=== PATIENT | female | born 1995 | race African-American/Black ===

== ENCOUNTER 2017-09-17 14:44 | Emergency (ER) | payer MEDICAID, SELFPAY ==
[2017-09-17 15:38] LABS: #Basophils 0.1 thou/uL (0.0-0.2); #Eosinphils 0.1 thou/uL (0.0-0.7); #Lymphocytes 1.9 thou/uL (1.20-3.40); #Monocytes 0.4 thou/uL (0.11-0.59); #Neutrophils 4.4 thou/uL (1.40-6.50); %Basophils 1.2 % (0.0-1.0); %Eosinophils 0.8 % (0.0-10.0); %Lymphocytes 27.8 % (21.0-51.0); %Monocytes 5.9 % (0.0-10.0); Hematocrit 40.2 % (36.0-47.0); Mean Platelet Volume 6.4 fL (7.4-10.4); Red Blood Cell (RBC) Count 4.56 mill/uL (4.20-5.40); White Blood Cell (WBC) Count 6.8 thou/uL (4.8-10.8)
[2017-09-17 15:58] LABS: ALT (SGPT) 20 U/L (8-55); AST (SGOT) 23 U/L (5-34); Alkaline Phosphatase 124 U/L (40-150); Anion Gap 9 mmol/L (10-20); BUN (Urea Nitrogen) 7 mg/dL (7.0-18.7); Bilirubin, Total 0.3 mg/dL (0.2-1.2); Calc. Creatinine Clearance 0 mL/min (70-130); Calcium 9.6 mg/dL (7.8-10.44); Carbon Dioxide 30 mmol/L (22-29); Chloride 101 mmol/L (98-107); Estimated GFR-MDRD Greater than 90; Lipase 69 U/L (8-78); Protein, Total 6.8 g/dL (6.0-8.3)
[2017-09-17 16:32] LABS: Bilirubin Negative (Negative); Blood, Urine Negative (Negative); Glucose, Urine (Dipstick) Negative (Negative); Ketone, Urine Negative (Negative); Nitrite Negative (Negative); Protein, Urine (Dipstick) Negative (Neg-Trace)
--- NOTE | 2017-10-16 16:12 | EKG ---
Test Reason : Blood Pressure : / mmHG Vent. Rate : 095 BPM Atrial Rate : 095 BPM P-R Int : 150 ms QRS Dur : 078 ms QT Int : 332 ms P-R-T Axes : 066 053 043 degrees QTc Int : 417 ms Normal sinus rhythm Normal ECG Confirmed by HELENA CACERES, GILLIAN Branch ([id number]), legal editor SHANDA ROMERO ([id number]) on 10/16/2017 4:12:10 PM Referred By: Confirmed By:GILLIAN MALIK MD
== END 2017-09-17 17:04 | disposition home or self-care (01) ==
LOC: ERS 14:44
DX: R55 Syncope and collapse (principal)
CPT/HCPCS: 36415; 80053; 81003; 83690; 84703; 85025; 93005; 96360

== ENCOUNTER 2017-10-06 13:42 | Emergency (ER) | payer SELFPAY ==
[2017-10-06] MEDS ORDERED: Ondansetron ODT 4 MG TAB ONE (14:16)
[2017-10-06 14:38] LABS: #Basophils 0.1 thou/uL (0.0-0.2); #Eosinphils 0.1 thou/uL (0.0-0.7); #Lymphocytes 2.1 thou/uL (1.20-3.40); #Monocytes 0.6 thou/uL (0.11-0.59); #Neutrophils 3.4 thou/uL (1.40-6.50); %Basophils 1.1 % (0.0-1.0); %Eosinophils 1.3 % (0.0-10.0); %Monocytes 9.1 % (0.0-10.0); Hematocrit 41.6 % (36.0-47.0); Mean Platelet Volume 6.5 fL (7.4-10.4); Red Blood Cell (RBC) Count 4.71 mill/uL (4.20-5.40); White Blood Cell (WBC) Count 6.3 thou/uL (4.8-10.8)
[2017-10-06 14:57] LABS: ALT (SGPT) 19 U/L (8-55); AST (SGOT) 18 U/L (5-34); Alkaline Phosphatase 132 U/L (40-150); Anion Gap 9 mmol/L (10-20); BUN (Urea Nitrogen) 9 mg/dL (7.0-18.7); Bilirubin, Total 0.3 mg/dL (0.2-1.2); Calc. Creatinine Clearance 0 mL/min (70-130); Calcium 9.5 mg/dL (7.8-10.44); Carbon Dioxide 30 mmol/L (22-29); Chloride 103 mmol/L (98-107); Estimated GFR-MDRD Greater than 90; Globulin 3.3 g/dL (2.4-3.5); Lipase 30 U/L (8-78); Protein, Total 7.2 g/dL (6.0-8.3)
[2017-10-06 15:06] LABS: Bilirubin Negative (Negative); Blood, Urine Large (Negative); Glucose, Urine (Dipstick) Negative (Negative); Ketone, Urine Negative (Negative); Nitrite Negative (Negative); Protein, Urine (Dipstick) 30 mg/dL (Neg-Trace)
[2017-10-06 15:09] LABS: Bacteria/HPF Rare-Few HPF (None Seen); Hyaline Casts/LPF 0-3 HYALINE CAST LPF (0-3 Hyaline); RBC/HPF GREATER THAN 50-TNTC HPF (0-3)
[2017-10-06] MEDS ORDERED: cefTRIAXone\\ROCEPHIN 250 MG VIAL ONE (15:42)
[2017-10-06] MEDS ORDERED: Azithromycin 250 MG TAB ONE (15:42)
[2017-10-06] MEDS ORDERED: Lidocaine 1% PF 5 ML VIAL ONE (15:44)
== END 2017-10-06 16:20 | disposition home or self-care (01) ==
LOC: ERS 13:42
DX: N39.0 Urinary tract infection, site not specified (principal); Z20.2 Contact with and (suspected) exposure to infections with a predominantly sexual mode of transmission
CPT/HCPCS: 36415; 80053; 81003; 81015; 81025; 83690; 84703; 85025; 87480; 87491; 87510; 87591; 87660; 96372; J0696; J2001; Q0162

== ENCOUNTER 2019-11-19 17:38 | Emergency (ER) | payer MEDICAID ==
[2019-11-19] MEDS ORDERED: Ondansetron PF 4 MG/2 ML Vial ONE (18:18)
[2019-11-19 20:14] LABS: Bacteria/HPF 3+ HPF (None Seen); Bilirubin Negative (Negative); Blood, Urine Negative (Negative); Clarity Turbid (Clear); Glucose, Urine (Dipstick) Normal (Negative); Leukocyte 75 Leu/uL (Negative); Mucous/LPF Rare LPF (<2+); Nitrite Negative (Negative); Protein, Urine (Dipstick) 100 mg/dL (Neg-Trace); RBC/HPF 0-3 HPF (0-3); Squamous Epithelial Greater than 50 HPF (0-3); Urobilinogen Greater than 12 mg/dL (Less than 2); WBC/HPF 0-3 HPF (0-3)
[2019-11-19 20:16] LABS: Pregnancy Test - Urine (BHCG) POSITIVE (Negative); Pregu Control Background? CLEAR/WHITE (CLR/WHITE); Pregu Control Bar Appear? YES (CONTROL BAR); Specific Gravity 1.034 (1.002-1.036)
[2019-11-19] MEDS ORDERED: Metoclopramide HCl 10 MG/2 ML VIAL ONE (21:40)
== END 2019-11-19 22:04 | disposition home or self-care (01) ==
LOC: ERS 17:38
DX: O21.0 Mild hyperemesis gravidarum (principal); Z3A.08 8 weeks gestation of pregnancy
CPT/HCPCS: 81003; 81015; 81025; 96361; 96374; 96375; J2405; J2765

== ENCOUNTER 2020-02-15 13:44 | Outpatient (CLI) | payer OTHER ==
--- NOTE | 2020-02-15 14:57 | ULT ---
COMPLETE OBSTETRIC ULTRASOUND: 02/15/20 INDICATION: Evaluate anatomy. COMPARISON: None. FINDINGS: There is a single live intrauterine gestation in vertex presentation. Placenta is anterior in locatio n without evidence of previa. Cardiac activity is noted at 144 beats per minute. The head, heart, stomach, kidneys, spleen, lips and nose, cord insertion, bladder, extremities and three vessel cord appear within normal limits. The biparietal diameter measures 4.93 cm giving an estimated gestational age of 21 weeks and 0 days. Head circumference measures 18.53 cm giving an estimated gestational age of 21 weeks and 0 days. Abdominal circumference measures 16.34 cm giving an estimated gestational age of 21 weeks and 3 days. Femur length measures 3.91 cm giving an estimated gestational age of 20 weeks and 4 days. Estimated weight is 451 grams +/- 66 grams (64th percentile). Average gestational age by ultrasound is 21 weeks and 4 days. Clinical age is 21 weeks and 3 days. Es timated due date by ultrasound is 06/23/20. Estimated due date by clinical date is 06/24/20. IMPRESSION: Single live intrauterine gestational with size and dates as above. POS:
== END 2020-02-15 13:45 | disposition home or self-care (01) ==
LOC: BICULT 13:44
PROVIDERS: ATTEND Family Medicine
DX: O09.92 Supervision of high risk pregnancy, unspecified, second trimester (principal); Z3A.21 21 weeks gestation of pregnancy
CPT/HCPCS: 76805

== ENCOUNTER 2020-03-31 03:01 | Emergency (ER) | payer OTHER ==
[2020-03-31] MEDS ORDERED: Lidocaine 2% MPF 10 ML AMP (For Epidural Use) ONE (04:51)
[2020-03-31] MEDS ORDERED: Lidocaine 1% (PF) 30 ML VIAL ONE (04:51)
[2020-03-31] MEDS ORDERED: Bacitracin 1 PK ONE (06:22)
== END 2020-03-31 06:35 | disposition home or self-care (01) ==
LOC: ERS 03:01
DX: L03.011 Cellulitis of right finger (principal)
CPT/HCPCS: 10060; J2001

== ENCOUNTER 2020-06-03 16:06 | Day surgery (SDC) | payer OTHER ==
[2020-06-03 16:59] VITALS: BP 133/88; TEMP 99.1; BMI 42.1
[2020-06-03] MEDS ORDERED: hydrALAZINE 20 MG/ML VIAL SLOW IVP PRN (17:27)
[2020-06-03 18:12] LABS: #Lymphocytes 1.3 thou/uL (1.20-3.40); #Monocytes 0.5 thou/uL (0.11-0.59); #Neutrophils 4.7 thou/uL (1.40-6.50); %Basophils 0.3 % (0.0-1.0); %Eosinophils 0.3 % (0.0-10.0); %Lymphocytes 20.1 % (21.0-51.0); %Monocytes 8.2 % (0.0-10.0); %Neutrophils 71.1 % (42.0-75.0); Hemoglobin 11.1 g/dL (12.0-16.0); Mean Corpuscular HGB CONC 33.3 g/dL (32.0-36.0); Mean Corpuscular Hemoglobin 27.6 pg (27.0-31.0); Mean Corpuscular Volume 82.9 fL (78.0-98.0); Mean Platelet Volume 7.7 fL (7.4-10.4); Platelet Count 243 thou/uL (130-400); RBC Distribution Width 14.5 % (11.5-14.5); Red Blood Cell (RBC) Count 4.02 mill/uL (4.20-5.40); White Blood Cell (WBC) Count 6.5 thou/uL (4.8-10.8)
[2020-06-03 18:18] LABS: Hemoglobin A1c 6.3 % (4.0-6.0)
[2020-06-03 18:34] LABS: ALT (SGPT) 15 U/L (8-55); AST (SGOT) 19 U/L (5-34); Albumin 3.1 g/dL (3.5-5.0); Alkaline Phosphatase 201 U/L (40-110); Anion Gap 10 mmol/L (10-20); BUN (Urea Nitrogen) 5 mg/dL (7.0-18.7); Bilirubin, Total 0.3 mg/dL (0.2-1.2); Calc. Creatinine Clearance 233 mL/min (70-130); Calcium 9.2 mg/dL (7.8-10.44); Carbon Dioxide 23 mmol/L (22-29); Chloride 106 mmol/L (98-107); Estimated GFR-MDRD Greater than 90; Globulin 3.4 g/dL (2.4-3.5); Glucose 73 mg/dL (70-105); Protein, Total 6.5 g/dL (6.0-8.3); Sodium 135 mmol/L (136-145)
--- NOTE | 2020-06-03 18:50 | ULT ---
Exam: Nonstress biophysical profile HISTORY: 37 week intrauterine , gestational maternal diabetes TECHNIQUE: Nonstress biophysical profile is performed FINDINGS: position Vertex Anterior placenta. The placental tip appears to be remote from the cervix. Cervix cannot be assessed due to shadowing heart tones: 149 bpm biometry: BPD 8.81 cm, 35 weeks 4 days Head circumference 32.60 cm, 37 weeks 0 days Abdominal circumference 33.98 cm, 37 weeks 6 days Femur length 7.23 cm, 37 weeks 0 days Average age by sonography is 36 weeks 6 days. Estimated delivery date 06/25/2020 Estimated weight 3172 g +/- 469 g Amniotic fluid 13.5 IMPRESSION: Single intrauterine gestation with heart tones. Average age by sonography is 36 weeks 6 days. Transcribed Date/Time: 06/03/2020 6:59 PM
--- NOTE | 2020-06-03 18:51 | ULT ---
NONSTRESS BIOPHYSICAL PROFILE: FINDINGS: tone: 2 breathin movement: 2 Amniotic fluid: 2 Amniotic fluid index is 13.5 cm Total score is 8 out of 8 IMPRESSION: Nonstress biophysical profile with a total score 8 out of 8. Transcribed Date/Time: 06/03/2020 7:01 PM
--- NOTE | 2020-06-04 12:33 | SS ---
DATE OF ADMISSION: 06/03/2020 DATE OF DISCHARGE: 06/03/2020 REGULAR PHYSICIAN: Aleksander Multani MD. CHIEF COMPLAINT: Sent from office by Dr. Multani. HISTORY OF PRESENT ILLNESS: Ms. Mandujano is a 24-year-old black G1, P0 with an estimated date of confinement of 06/24/2020, who presents from Dr. Multani's office for evaluation. I spoke with him and his concern is that she had been noncompliant with her diet and he had concerns regarding her gestational diabetes. The patient does report to me that her fastings run 78-90 and that her post prandials run 112-120. She denies ruptured membranes, vaginal bleeding or decreased movement. PAST MEDICAL HISTORY: None. PAST SURGICAL HISTORY: None. CURRENT MEDICATIONS: vitamins. ALLERGIES: PEANUTS, IODINE, SHELLFISH. SOCIAL HISTORY: Denies tobacco, alcohol, or drug use. FAMILY HISTORY: Unremarkable. REVIEW OF SYSTEMS: Denies nausea, vomiting, fever, chills, ruptured membranes, or vaginal bleeding. PHYSICAL EXAMINATION: VITAL SIGNS: Blood pressure is 133/88. Remainder of her vital signs are stable. GENERAL: She is pleasant and in no distress. heart rate tracing is stable. There are no decelerations. No regular contractions are seen. LABORATORY DATA: White count 6.5, hemoglobin 11.1, hematocrit 33.3. Platelet count 243,000. Chemistry: Sodium 135, potassium 4.0, carbon dioxide 23, creatinine 0.63, glucose 73. Hemoglobin A1c 6.3, total bilirubin 0.3, AST and ALT are 19 and 15 respectively, IMAGIN. Biophysical profile gives a score of 8/8. 2. Ultrasound shows a vertex fetus, weight 3172 g with an DEVON of 13.5. ASSESSMENT: 1. Thirty-seven week intrauterine . 2. Gestational diabetes. 3. Reassuring testing here in Labor and Delivery today. PLAN: The results were discussed with Dr. Multani. She will be sent home with labor precautions and follow up per his instructions. Job ID: [id number]
== END 2020-06-03 19:10 | disposition home health service (06) ==
LOC: L&D/OP 16:06
PROVIDERS: ATTEND Family Medicine
DX: O24.410 Gestational diabetes mellitus in pregnancy, diet controlled (principal); Z3A.37 37 weeks gestation of pregnancy; Z88.8 Allergy status to other drugs, medicaments and biological substances; Z91.010 Allergy to peanuts; Z91.013 Allergy to seafood
CPT/HCPCS: 36415; 76815; 76819; 80053; 83036; 85025; 99282

== ENCOUNTER 2021-01-20 08:00 | Inpatient (IN) | payer OTHER ==
[2021-01-20] MEDS ORDERED: Ondansetron PF 4 MG/2 ML Vial ONE ×3 (08:21→18:54)
[2021-01-20 08:26] LABS: #Basophils 0.1 thou/uL (0.0-0.2); #Eosinphils 0.1 thou/uL (0.0-0.7); #Lymphocytes 1.2 thou/uL (1.20-3.40); #Monocytes 0.3 thou/uL (0.11-0.59); #Neutrophils 2.6 thou/uL (1.40-6.50); %Basophils 1.5 % (0.0-1.0); %Eosinophils 1.2 % (0.0-10.0); %Lymphocytes 28.5 % (21.0-51.0); %Monocytes 6.1 % (0.0-10.0); %Neutrophils 62.7 % (42.0-75.0); Hemoglobin 13.3 g/dL (12.0-16.0); Mean Corpuscular HGB CONC 32.8 g/dL (32.0-36.0); Mean Corpuscular Hemoglobin 28.1 pg (27.0-31.0); Mean Corpuscular Volume 85.5 fL (78.0-98.0); Platelet Count 348 thou/uL (130-400); RBC Distribution Width 13.5 % (11.5-14.5); Red Blood Cell (RBC) Count 4.74 mill/uL (4.20-5.40); White Blood Cell (WBC) Count 4.2 thou/uL (4.8-10.8)
[2021-01-20 08:34] LABS: BHCG - Serum Negative (NEGATIVE); Pregs Control Background? CLEAR/WHITE (CLR/WHITE); Pregs Control Bar Appear? YES (CONTROL BAR)
[2021-01-20 08:47] LABS: ALT (SGPT) 1152 U/L (8-55); AST (SGOT) 1096 U/L (5-34); Albumin 4.1 g/dL (3.5-5.0); Alkaline Phosphatase 329 U/L (40-110); Anion Gap 15 mmol/L (10-20); BUN (Urea Nitrogen) 8 mg/dL (7.0-18.7); Calc. Creatinine Clearance 0 mL/min (70-130); Calcium 8.9 mg/dL (7.8-10.44); Carbon Dioxide 26 mmol/L (22-29); Chloride 102 mmol/L (98-107); Globulin 3.5 g/dL (2.4-3.5); Glucose 105 mg/dL (70-105); Lipase 54 U/L (8-78); Potassium 3.6 mmol/L (3.5-5.1); Protein, Total 7.6 g/dL (6.0-8.3); Sodium 139 mmol/L (136-145)
[2021-01-20] MEDS ORDERED: Piperacillin/Tazobactam 4.5 GM VIAL ONE (11:28)
[2021-01-20] MEDS ORDERED: Morphine 4 MG/ML VIAL ONE (11:28)
[2021-01-20 13:09] LABS: SARS-CoV-2 NAA Rapid Test Not Detected (NotDetected)
[2021-01-20 13:36] LABS: HBSAg Index 0.22 S/CO (0-0.99); Hep B Surf Ag Non-Reactive S/CO (NonReactive); Hep C IgG Ab Non-Reactive (NonReactive); Hep C Index 0.06 S/CO (0-0.79)
[2021-01-20 13:37] LABS: Hep A IgM AB Non-Reactive (NonReactive); Hep A IgM S/CO 0.13 S/CO (0-0.79)
[2021-01-20 13:38] LABS: HBCM Index 0.09 S/CO (0-0.79); Hepatitis B Core IgM Abs Non-Reactive (NonReactive)
[2021-01-20] MEDS ORDERED: Iothalamate Meglumine 60% 50 ML VIAL FS ONE (16:23)
[2021-01-20] MEDS ORDERED: Lidocaine 1% w/Epinephrine 1:100K 20 ML VIAL ONE (16:23)
[2021-01-20] MEDS ORDERED: Bupivacaine 0.25% HCL 30 ML VIAL ONE (16:23)
[2021-01-20] MEDS ORDERED: Midazolam HCl 2 mg/2 ml Vial ONE (16:36)
[2021-01-20] MEDS ORDERED: Fentanyl 100 MCG/2 ML VIAL ONE ×3 (16:36→19:48)
[2021-01-20] MEDS ORDERED: PROPOFOL 200 MG/20 ML VIAL ONE (16:42)
[2021-01-20] MEDS ORDERED: Dexamethasone 20 MG/5 ML VIAL ONE (16:42)
[2021-01-20] MEDS ORDERED: Rocuronium Bromide 10 MG/ML (10ML VIAL) ONE (16:42)
[2021-01-20] MEDS ORDERED: Glycopyrrolate 0.2 MG/ML 5 ML SYRINGE ONE (16:42)
[2021-01-20] MEDS ORDERED: Ketorolac Tromethamine 30 MG/ML VIAL ONE (16:42)
[2021-01-20] MEDS ORDERED: Lidocaine 1% PF 5 ML VIAL ONE (16:42)
[2021-01-20] MEDS ORDERED: Ioversol 68 % 50 ML VIAL ONE (16:57)
[2021-01-20] MEDS ORDERED: Dextrose 50% Abboject 50 ML SYRINGE SLOW IVP PRN (18:47)
[2021-01-20] MEDS ORDERED: Mag-Al 1200 mg/1200 mg/30 ML UDCUP PO PRN (18:47)
[2021-01-20] MEDS ORDERED: Ondansetron PF 4 MG/2 ML Vial IVP PRN (18:47)
[2021-01-20] MEDS ORDERED: Dextrose 5% in Water 1,000 ML IV PRN (18:47)
[2021-01-20] MEDS ORDERED: hydrALAZINE 20 MG/ML VIAL SLOW IVP PRN (18:47)
[2021-01-20] MEDS ORDERED: Calcium Carbonate 500 MG ChewTAB PO PRN (18:47)
[2021-01-20] MEDS ORDERED: Morphine 4 MG/ML VIAL SLOW IVP PRN (18:47)
[2021-01-20] MEDS ORDERED: Promethazine HCl 25 MG/ML VIAL IM PRN (18:47)
[2021-01-20] MEDS ORDERED: traMADol HCl 50 MG TAB PO PRN (18:53)
[2021-01-20] MEDS ORDERED: Promethazine HCl 25 MG/ML VIAL ONE (19:01)
[2021-01-20] MEDS: Enoxaparin Sodium 40 MG/0.4 ML SYRINGE SC SCH (22:24)
[2021-01-20] MEDS: Famotidine/PF 20 mg/2ml Vial SLOW IVP SCH (22:24)
[2021-01-20] MEDS: Ketorolac Tromethamine 30 MG/ML VIAL IVP SCH (22:24)
[2021-01-20] MEDS: traMADol HCl 50 MG TAB PO PRN (22:26)
[2021-01-20] MEDS: Famotidine 20 MG TAB PO SCH (22:27)
[2021-01-20] MEDS: Lactated Ringer's 1,000 ML IV SCH (22:27)
[2021-01-20 23:19] VITALS: BMI 33.6
[2021-01-20] MEDS: Acetaminophen 500 MG TAB PO SCH (23:45)
[2021-01-20] MEDS: Piperacillin/Tazobactam 3.375 GM in Sodium Chloride 0.9% 100 ML IVPB SCH (23:45)
[2021-01-20] MEDS ORDERED: Ketorolac Tromethamine 30 MG/ML VIAL IVP SCH (23:59)
[2021-01-21] MEDS: Lactated Ringer's 1,000 ML IV SCH ×3 (03:27→20:32)
[2021-01-21] MEDS: Acetaminophen 500 MG TAB PO SCH ×3 (05:26→18:37)
[2021-01-21] MEDS: Ketorolac Tromethamine 30 MG/ML VIAL IVP SCH ×3 (05:26→21:16)
[2021-01-21] MEDS: traMADol HCl 50 MG TAB PO PRN (05:27)
[2021-01-21 06:04] LABS: #Lymphocytes 0.7 thou/uL (1.20-3.40); #Monocytes 0.2 thou/uL (0.11-0.59); #Neutrophils 5.7 thou/uL (1.40-6.50); %Eosinophils 0.1 % (0.0-10.0); %Lymphocytes 10.9 % (21.0-51.0); %Monocytes 3.2 % (0.0-10.0); %Neutrophils 85.8 % (42.0-75.0); Hemoglobin 13.1 g/dL (12.0-16.0); Mean Corpuscular HGB CONC 32.8 g/dL (32.0-36.0); Mean Corpuscular Hemoglobin 28.4 pg (27.0-31.0); Mean Corpuscular Volume 86.5 fL (78.0-98.0); Mean Platelet Volume 7.1 fL (7.4-10.4); Platelet Count 353 thou/uL (130-400); RBC Distribution Width 13.5 % (11.5-14.5); White Blood Cell (WBC) Count 6.6 thou/uL (4.8-10.8)
[2021-01-21] MEDS: Piperacillin/Tazobactam 3.375 GM in Sodium Chloride 0.9% 100 ML IVPB SCH ×3 (06:06→18:37)
[2021-01-21 06:27] LABS: ALT (SGPT) 1111 U/L (8-55); AST (SGOT) 649 U/L (5-34); Albumin 3.9 g/dL (3.5-5.0); Alkaline Phosphatase 396 U/L (40-110); Anion Gap 11 mmol/L (10-20); BUN (Urea Nitrogen) 5 mg/dL (7.0-18.7); Bilirubin, Total 3.7 mg/dL (0.2-1.2); Calc. Creatinine Clearance 157 mL/min (70-130); Carbon Dioxide 28 mmol/L (22-29); Chloride 103 mmol/L (98-107); Globulin 3.4 g/dL (2.4-3.5); Glucose 98 mg/dL (70-105); Lipase 34 U/L (8-78); Potassium 4.3 mmol/L (3.5-5.1); Protein, Total 7.3 g/dL (6.0-8.3); Sodium 138 mmol/L (136-145)
[2021-01-21] MEDS: Famotidine 20 MG TAB PO SCH ×2 (09:08→20:32)
[2021-01-21] MEDS: Famotidine/PF 20 mg/2ml Vial SLOW IVP SCH ×2 (09:08→20:31)
[2021-01-21] MEDS ORDERED: Sodium Chloride 0.9% 100 ML ONE ×2 (14:24→14:34)
[2021-01-21] MEDS ORDERED: Levofloxacin 500 mg/D5W 100 ml Premix Bag ONE (14:24)
[2021-01-21] MEDS ORDERED: Ketorolac Tromethamine 30 MG/ML VIAL ONE (14:24)
[2021-01-21] MEDS ORDERED: Piperacillin/Tazobactam 3.375 GM VIAL ONE (14:24)
[2021-01-21] MEDS ORDERED: Fentanyl 100 MCG/2 ML VIAL ONE (17:46)
[2021-01-21] MEDS ORDERED: Iothalamate Meglumine 60% 50 ML VIAL FS ONE (17:48)
[2021-01-21] MEDS ORDERED: Indomethacin 50 MG SUPP ONE (17:49)
[2021-01-21] MEDS ORDERED: Dexamethasone 20 MG/5 ML VIAL ONE (18:08)
[2021-01-21] MEDS ORDERED: PROPOFOL 200 MG/20 ML VIAL ONE (18:08)
[2021-01-21] MEDS ORDERED: Lidocaine 1% PF 5 ML VIAL ONE (18:08)
[2021-01-21] MEDS ORDERED: Ondansetron PF 4 MG/2 ML Vial ONE (18:08)
[2021-01-21] MEDS ORDERED: Rocuronium Bromide 10 MG/ML (10ML VIAL) ONE (18:08)
[2021-01-21] MEDS ORDERED: Ioversol 68 % 50 ML VIAL ONE (18:21)
[2021-01-21] MEDS ORDERED: SUGAMMADEX SODIUM 200 MG/2 ML VIAL ONE (18:41)
[2021-01-21] MEDS: Enoxaparin Sodium 40 MG/0.4 ML SYRINGE SC SCH (20:31)
[2021-01-22] MEDS: Acetaminophen 500 MG TAB PO SCH ×3 (00:03→12:39)
[2021-01-22] MEDS: Piperacillin/Tazobactam 3.375 GM in Sodium Chloride 0.9% 100 ML IVPB SCH ×3 (00:03→16:04)
[2021-01-22] MEDS: Ketorolac Tromethamine 30 MG/ML VIAL IVP SCH ×2 (05:25→16:04)
[2021-01-22 06:28] LABS: #Monocytes 0.3 thou/uL (0.11-0.59); #Neutrophils 6.5 thou/uL (1.40-6.50); %Basophils 0.2 % (0.0-1.0); %Eosinophils 0.1 % (0.0-10.0); %Lymphocytes 12.8 % (21.0-51.0); %Neutrophils 82.9 % (42.0-75.0); Hemoglobin 12.1 g/dL (12.0-16.0); Mean Corpuscular HGB CONC 32.9 g/dL (32.0-36.0); Mean Corpuscular Hemoglobin 28.2 pg (27.0-31.0); Mean Corpuscular Volume 85.8 fL (78.0-98.0); Mean Platelet Volume 7.3 fL (7.4-10.4); Platelet Count 310 thou/uL (130-400); RBC Distribution Width 13.4 % (11.5-14.5); Red Blood Cell (RBC) Count 4.29 mill/uL (4.20-5.40); White Blood Cell (WBC) Count 7.9 thou/uL (4.8-10.8)
[2021-01-22 06:48] LABS: ALT (SGPT) 609 U/L (8-55); AST (SGOT) 166 U/L (5-34); Albumin 3.4 g/dL (3.5-5.0); Alkaline Phosphatase 290 U/L (40-110); Anion Gap 13 mmol/L (10-20); BUN (Urea Nitrogen) 7 mg/dL (7.0-18.7); Bilirubin, Total 0.7 mg/dL (0.2-1.2); Calc. Creatinine Clearance 176 mL/min (70-130); Calcium 8.6 mg/dL (7.8-10.44); Carbon Dioxide 23 mmol/L (22-29); Chloride 107 mmol/L (98-107); Glucose 100 mg/dL (70-105); Lipase 63 U/L (8-78); Potassium 4.1 mmol/L (3.5-5.1); Protein, Total 6.4 g/dL (6.0-8.3); Sodium 139 mmol/L (136-145)
[2021-01-22] MEDS: Lactated Ringer's 1,000 ML IV SCH (09:22)
[2021-01-22] MEDS: Famotidine 20 MG TAB PO SCH (09:22)
[2021-01-22] MEDS: Famotidine/PF 20 mg/2ml Vial SLOW IVP SCH (11:37)
[2021-01-22 11:46] VITALS: BP 128/84; TEMP 98.6
== END 2021-01-22 16:20 | disposition home or self-care (01) | DRG 419 ==
LOC: ERS 08:00 → SDC 13:40 → SURG B 16:00 → SDC 18:47 → SURG B 18:47 → OBSVTOIN 01-22 12:27
PROVIDERS: ADMIT Surgery; ATTEND Surgery
PROC: 0FT44ZZ Resection of Gallbladder, Percutaneous Endoscopic Approach (ICD-10-PCS; principal; 2021-01-20)
PROC: BF141ZZ Fluoroscopy of Gallbladder, Bile Ducts and Pancreatic Ducts using Low Osmolar Contrast (ICD-10-PCS; 2021-01-20)
PROC: 0F798ZZ Dilation of Common Bile Duct, Via Natural or Artificial Opening Endoscopic (ICD-10-PCS; 2021-01-21)
DX: K80.62 Calculus of gallbladder and bile duct with acute cholecystitis without obstruction (principal); E66.01 Morbid (severe) obesity due to excess calories; K59.00 Constipation, unspecified; Z83.3 Family history of diabetes mellitus; Z82.0 Family history of epilepsy and other diseases of the nervous system; Z91.041 Radiographic dye allergy status; Z91.013 Allergy to seafood; R74.01 Elevation of levels of liver transaminase levels; Z68.33 Body mass index [BMI] 33.0-33.9, adult
CPT/HCPCS: 36415; 47532; 74330; 76705; 80053; 80074; 83690; 84703; 85025; 88304; 93005; 96365; 96366; 96372; 96375; 96376; G0378; J1100; J1610; J1650; J1885; J1956; J2250; J2270; J2405; J2543; J2550; J2704; J3010; J3490; Q9967; S0020; S0028; U0002

== ENCOUNTER 2021-10-22 18:49 | Emergency (ER) | payer OTHER ==
[2021-10-22] MEDS ORDERED: Acetaminophen 500 MG TAB ONE (20:21)
== END 2021-10-22 22:42 | disposition home or self-care (01) ==
LOC: ERS 18:49
DX: B34.9 Viral infection, unspecified (principal)
CPT/HCPCS: 87081; 87430; 87804; 99284

== ENCOUNTER 2022-11-23 15:10 | Emergency (ER) | payer OTHER ==
[2022-11-23] MEDS ORDERED: Ketorolac Tromethamine 30 MG/ML VIAL ONE (16:35)
[2022-11-23] MEDS ORDERED: Acetaminophen 500 MG TAB ONE (16:35)
== END 2022-11-23 17:59 | disposition home or self-care (01) ==
LOC: ERS 15:10
DX: J02.0 Streptococcal pharyngitis (principal); Z20.822 Contact with and (suspected) exposure to COVID-19
CPT/HCPCS: 87430; 87804; 96372; 99283; J1885; U0003; U0005